=== PATIENT | female | born 1945 | race Caucasian/White ===

== ENCOUNTER 2016-10-27 06:15 | Day surgery (SDC) | payer MEDICARE, OTHER ==
--- NOTE | ~2016-10-27 | EGD ---
EGD REPORT [facility] [address] [place]. [place] [address] NAME: ANYI KNIGHT : 47 STATUS : REG [facility] [place] PAT#: [id number] AGE: 71 ADM/REG DATE : 10/27/16 MR#: [id number] REPORT SERV DATE: 10/27/16 DICTATED BY: AZALIA JOHN DATE: 10/27/16 REPORT STATUS : Draft TRANSCRIBED BY: [facility] DATE: 10/27/16 Endoscopy Center Patient Name: Anyi Knight Date of : 1945 Attending MD: AZALIA JOHN MD Procedure Date No Time: 10/27/2016 Procedure: Colonoscopy Indications: Screening for colorectal malignant neoplasm Referring MD: LUNA DUVAL Medicines: as per anesthesia Complications: No immediate complications. Procedure: After I obtained informed consent, the scope was passed under direct vision. Throughout the procedure, the patient's blood pressure, pulse, and oxygen saturations were monitored continuously. The PCF [id number] was introduced through the anus and advanced to the cecum, identified by appendiceal orifice and ileocecal valve. The colonoscopy was performed without difficulty. The patient tolerated the procedure. The quality of the bowel preparation was adequate to identify polyps. Findings: The perianal and digital rectal examinations were normal. Multiple small and large-mouthed diverticula were found in the sigmoid colon, in the descending colon, in the transverse colon and in the ascending colon. Internal hemorrhoids were found during endoscopy and were mild. Impression: - Diverticulosis in the sigmoid colon, in the descending colon, in the transverse colon and in the ascending colon. - Internal hemorrhoids. Recommendation: - Continue present medications. Procedure Code(s): --- Professional --- 25465, Colonoscopy, flexible, proximal to splenic flexure; diagnostic, with or without collection of specimen(s) by brushing or washing, with or without colon decompression (separate procedure) Diagnosis Code(s): --- Professional --- K64.8, Other hemorrhoids K57.30, Diverticulosis of large intestine without perforation or abscess without bleeding EGD REPORT [facility] [address] [place] [address] NAME: ANYI KNIGHT : 47 STATUS : REG [facility] [place] PAT#: [id number] AGE: 71 ADM/REG DATE : 10/27/16 MR#: [id number] REPORT SERV DATE: 10/27/16 DICTATED BY: AZALIA JOHN. DATE: 10/27/16 REPORT STATUS : Draft TRANSCRIBED BY: [employer] DATE: 10/27/16 Z12.11, Encounter for screening for malignant neoplasm of colon CPT copyright 2013 [employer]. All rights reserved. The codes documented in this report are preliminary and upon infectious waste technician review may be revised to meet current compliance requirements. AZALIA JOHN MD 10/27/2016 9:23 AM This report has been signed electronically. Number of Addenda: 0 Note Initiated On: 10/27/2016 8:41 AM Scope Withdrawal Time 0 hours 12 minutes 49 seconds [address] [place] [address]
--- NOTE | ~2016-10-27 | EGD ---
EGD REPORT [facility] [address] [address] NAME: ANYI KNIGHT : [birth year] STATUS : REG [facility]#: [id number] AGE: 71 ADM/REG DATE : 10/27/16 MR#: [id number] REPORT SERV DATE: 10/27/16 DICTATED BY: DATE: REPORT STATUS : Draft TRANSCRIBED BY: [employer] DATE: 10/27/16 Endoscopy Center Patient Name: Anyi Knight Date of : 1945 Attending MD: AZALIA JOHN MD Procedure Date No Time: 10/27/2016 Procedure: Upper GI endoscopy Indications: Heartburn, Suspected esophageal reflux Referring MD: LUNA DUVAL Medicines: as per anesthesia Complications: No immediate complications. Procedure: After obtaining informed consent, the endoscope was passed under direct vision. Throughout the procedure, the patient's blood pressure, pulse, and oxygen saturations were monitored continuously. The GIF H190 [id number] was introduced through the mouth, and advanced to the third part of duodenum. The upper GI endoscopy was accomplished without difficulty. The patient tolerated the procedure. Findings: The examined esophagus was normal. A small hiatus hernia was present. The examined duodenum was normal. Impression: - Normal esophagus. - Hiatus hernia. - Normal examined duodenum. Recommendation: - Follow an antireflux regimen. - Continue present medications. Procedure Code(s): --- Professional --- 09209, Esophagogastroduodenoscopy, flexible, transoral; diagnostic, including collection of specimen(s) by brushing or washing, when performed (separate procedure) Diagnosis Code(s): --- Professional --- K44.9, Diaphragmatic hernia without obstruction or gangrene R12, Heartburn CPT copyright 2013 [employer]. All rights reserved. EGD REPORT [facility] [address] [address] NAME: ANYI KNIGHT : [birth year] STATUS : REG [facility] [place] PAT#: [id number] AGE: 71 ADM/REG DATE : 10/27/16 MR#: [id number] REPORT SERV DATE: 10/27/16 DICTATED BY: DATE: REPORT STATUS : Draft TRANSCRIBED BY: [employer] DATE: 10/27/16 The codes documented in this report are preliminary and upon carpenter form review may be revised to meet current compliance requirements. AZALIA JOHN MD 10/27/2016 9:01 AM This report has been signed electronically. Number of Addenda: 0 Note Initiated On: 10/27/2016 8:42 AM Scope Withdrawal Time 0 hours 0 minutes 0 seconds [address] [place] [address]
[~2016-10-27 06:15] MED LIST: ARICEPT10 PO; BL FLAX SEED1000 MG OR; CENTRUM TAB1 TAB PO; CRAN CONC500 MG OR; FISH-EPA1000 MG PO; GLUCCHONDR PO; MAGONATE PO; METAMUCIL CAN7 OZ PO; MULTIPLE VIT PO; NAMENDA10 MG PO; OS500+D PO; PROTONIX PO; PROTONIXIV IV; PVC V; TURMERIC; VITAMIN D31000 UNIT PO; VITE1000 PO; ZOCOR40 PO; ZOLOFT25 MG PO
== END 2016-10-27 23:59 | disposition home or self-care (01) ==
LOC: DMU 06:15
PROVIDERS: Internal Medicine Gastroenterology
PROC: 0DJ08ZZ Inspection of Upper Intestinal Tract, Via Natural or Artificial Opening Endoscopic (ICD-10-PCS; principal; 2016-10-27 08:00)
PROC: 0DJD8ZZ Inspection of Lower Intestinal Tract, Via Natural or Artificial Opening Endoscopic (ICD-10-PCS; 2016-10-27 08:00)
DX: Z12.11 Encounter for screening for malignant neoplasm of colon (principal); K64.8 Other hemorrhoids; K57.30 Diverticulosis of large intestine without perforation or abscess without bleeding; K44.9 Diaphragmatic hernia without obstruction or gangrene; K21.9 Gastro-esophageal reflux disease without esophagitis; F03.90 Unspecified dementia, unspecified severity, without behavioral disturbance, psychotic disturbance, mood disturbance, and anxiety; Z88.5 Allergy status to narcotic agent; Z98.890 Other specified postprocedural states
CPT/HCPCS: 43235; G0121